=== PATIENT | female | born 1990 | race Caucasian/White ===

== ENCOUNTER → 2017-06-09 | Outpatient (CLI) | payer OTHER | END | disposition home or self-care (01) | LOC: C.LABSPEC 14:55 | PROVIDERS: ATTEND Physician Assistant | DX: N39.0 Urinary tract infection, site not specified (principal) ==

== ENCOUNTER → 2017-10-10 | Outpatient (CLI) | payer OTHER ==
[2017-10-10 16:31] LABS: BASO % 0.4 %; BASO ABS # 0.04 K/uL (0-0.2); EOS % 3.6 %; EOS ABS # 0.35 K/uL (0-0.5); HEMATOCRIT 36.6 % (37-47); HEMOGLOBIN 12.9 g/dL (12.0-16.0); IG# 0.02 K/uL (0.00-0.02); LYMPH ABS # 1.48 K/uL (1.2-3.4); MEAN CELL VOLUME 86.7 fL (80-100); MEAN CORPUSCULAR HEMOGLOBIN 30.6 pg (25-34); MEAN CORPUSCULAR HGB CONC 35.2 g/dl (32-36); MEAN PLATELET VOLUME 10.6 fL (7.4-10.4); MONO % 5.9 %; MONO ABS # 0.58 K/uL (0.11-0.59); NEUT % 74.9 %; NEUT ABS # 7.37 K/uL (1.4-6.5); PLATELET COUNT 223 K/uL (130-400); RED CELL DISTRIBUTION WIDTH CV 12.7 % (11.5-14.5); RED CELL DISTRIBUTION WIDTH SD 39.9 fL (36.4-46.3); WHITE BLOOD COUNT 9.84 K/uL (4.8-10.8)
== END | disposition home or self-care (01) ==
LOC: C.LAB1850 15:08
PROVIDERS: ATTEND Obstetrics & Gynecology
DX: Z34.01 Encounter for supervision of normal first pregnancy, first trimester (principal)

== ENCOUNTER → 2017-12-07 | Outpatient (CLI) | payer OTHER | END | disposition home or self-care (01) | LOC: C.LAB1850 12:48 | PROVIDERS: ATTEND Obstetrics & Gynecology | DX: O30.042 Twin pregnancy, dichorionic/diamniotic, second trimester (principal); Z3A.00 Weeks of gestation of pregnancy not specified ==

== ENCOUNTER 2018-04-05 11:44 | Outpatient (CLI) | payer OTHER ==
[~2018-04-05] VITALS: Ht 162.6 cm; Wt 96.2 kg
[2018-04-05 11:53] VITALS: Ht 162.6 cm; Wt 96.2 kg
--- NOTE | 2018-04-12 13:21 | EDITING REQUIRED CODING QUERY ---
DIAGNOSIS NEEDED To promote full compliance with coding requirements relating to patient care, physician participation is requested in all cases of heat and frost insulator helper uncertainty. Please assist us with the question(s) below: Coding Question: The patient received care in labor and delivery on 04/05/18 as noted within the record. Please document the diagnosis that is being addressed by the medication/treatment. Provider Response: DIAGNOSIS: Di di twins, 34 w WEEKS OF GESTATION: 34 Thank you for your assistance, Jess Sun - Equipment Records Supervisor
== END 2018-04-05 12:05 | disposition home or self-care (01) ==
LOC: C.LD 11:44 → C.OPB 11:44
PROVIDERS: ATTEND Obstetrics & Gynecology
DX: O30.043 Twin pregnancy, dichorionic/diamniotic, third trimester (principal); Z3A.34 34 weeks gestation of pregnancy

== ENCOUNTER → 2018-04-05 | Outpatient (CLI) | payer OTHER ==
[~2018-04-05] MED LIST: CALC500C70 PO; DIPH25CA5 PO; FAMO20TA11 PO; ONDA4TAB46 PO; PRENTAB26 PO
[2018-04-05 12:34] LABS: ALBUMIN 2.6 gm/dl (3.4-5.0); ALKALINE PHOSPHATASE 191 U/L (45-117); ALT/SGPT 20 U/L (12-78); AST/SGOT 14 U/L (15-37); BLOOD UREA NITROGEN 6 mg/dl (7-18); CALCIUM 8.5 mg/dl (8.5-10.1); CARBON DIOXIDE 21 mmol/L (21-32); CREATININE 0.78 mg/dl (0.60-1.20); GLUCOSE 87 mg/dl (70-99); POTASSIUM 3.5 mmol/L (3.5-5.1); SODIUM 137 mmol/L (136-145); TOTAL PROTEIN 6.7 gm/dl (6.4-8.2)
== END | disposition home or self-care (01) ==
LOC: C.LAB1850 11:00
PROVIDERS: ATTEND Obstetrics & Gynecology
DX: L29.9 Pruritus, unspecified (principal)

== ENCOUNTER → 2018-04-05 | Outpatient (CLI) | payer OTHER | END | disposition home or self-care (01) | LOC: C.LABSPEC 13:13 | PROVIDERS: ATTEND Obstetrics & Gynecology | DX: O30.043 Twin pregnancy, dichorionic/diamniotic, third trimester (principal); Z3A.00 Weeks of gestation of pregnancy not specified ==

== ENCOUNTER 2018-04-12 14:24 | Outpatient (CLI) | payer OTHER ==
--- NOTE | 2018-04-19 08:15 | EDITING REQUIRED CODING QUERY ---
DIAGNOSIS NEEDED To promote full compliance with coding requirements relating to patient care, physician participation is requested in all cases of supervisor trust accounts uncertainty. Please assist us with the question(s) below: Coding Question: The patient received care in labor and delivery on 04/12/18 as noted within the record. Please document the diagnosis that is being addressed by the medication/treatment. Provider Response: DIAGNOSIS: twins WEEKS OF GESTATION: ? 34 Thank you for your assistance, Jess Sun - Learning Strategist
== END 2018-04-12 15:05 | disposition home or self-care (01) ==
LOC: C.LD 14:24 → C.OPB 14:24
PROVIDERS: ATTEND Obstetrics & Gynecology
DX: O30.009 Twin pregnancy, unspecified number of placenta and unspecified number of amniotic sacs, unspecified trimester (principal); Z3A.00 Weeks of gestation of pregnancy not specified

== ENCOUNTER 2018-04-16 14:54 | Outpatient (CLI) | payer OTHER ==
--- NOTE | 2018-04-19 08:19 | EDITING REQUIRED CODING QUERY ---
DIAGNOSIS NEEDED To promote full compliance with coding requirements relating to patient care, physician participation is requested in all cases of hardware developer uncertainty. Please assist us with the question(s) below: Coding Question: The patient received care in labor and delivery on 04/16/18 as noted within the record. Please document the diagnosis that is being addressed by the medication/treatment. Provider Response: DIAGNOSIS: dichorionic/diamniotic twins WEEKS OF GESTATION: 35 + weeks Thank you for your assistance, Jess Sun - Last Repairer
== END 2018-04-16 15:50 | disposition home or self-care (01) ==
LOC: C.OPB 14:54 → C.LD 14:57 → C.OPB 15:50
PROVIDERS: ATTEND Obstetrics & Gynecology
DX: O30.043 Twin pregnancy, dichorionic/diamniotic, third trimester (principal); Z3A.35 35 weeks gestation of pregnancy

== ENCOUNTER 2018-04-19 14:29 | Outpatient (CLI) | payer OTHER | END 2018-04-19 15:00 | disposition home or self-care (01) | LOC: C.OPB 14:29 → C.LD 14:29 → C.OPB 15:00 | PROVIDERS: ATTEND Obstetrics & Gynecology | DX: O30.009 Twin pregnancy, unspecified number of placenta and unspecified number of amniotic sacs, unspecified trimester (principal); Z3A.00 Weeks of gestation of pregnancy not specified ==

== ENCOUNTER 2018-04-23 14:05 | Outpatient (CLI) | payer OTHER | END 2018-04-23 14:54 | disposition home or self-care (01) | LOC: C.OPB 14:05 → C.LD 14:06 → C.OPB 14:54 | PROVIDERS: ATTEND Obstetrics & Gynecology | DX: O30.099 Twin pregnancy, unable to determine number of placenta and number of amniotic sacs, unspecified trimester (principal); Z3A.00 Weeks of gestation of pregnancy not specified ==

== ENCOUNTER 2018-04-26 12:16 | Outpatient (CLI) | payer OTHER | END 2018-04-26 12:51 | disposition home or self-care (01) | LOC: C.OPB 12:16 → C.LD 12:16 → C.OPB 12:51 | PROVIDERS: ATTEND Obstetrics & Gynecology | DX: O30.009 Twin pregnancy, unspecified number of placenta and unspecified number of amniotic sacs, unspecified trimester (principal); Z3A.00 Weeks of gestation of pregnancy not specified ==

== ENCOUNTER 2018-04-30 12:13 | Outpatient (CLI) | payer OTHER | END 2018-04-30 12:50 | disposition home or self-care (01) | LOC: C.OPB 12:13 → C.LD 12:13 → C.OPB 12:50 | PROVIDERS: ATTEND Obstetrics & Gynecology | DX: O30.009 Twin pregnancy, unspecified number of placenta and unspecified number of amniotic sacs, unspecified trimester (principal); Z3A.00 Weeks of gestation of pregnancy not specified ==

== ENCOUNTER 2018-05-01 19:42 | Outpatient (CLI) | payer OTHER | END 2018-05-01 21:02 | disposition home or self-care (01) | LOC: C.OPB 19:42 → C.LD 19:43 → C.OPB 21:02 | PROVIDERS: ATTEND Obstetrics & Gynecology | DX: O30.043 Twin pregnancy, dichorionic/diamniotic, third trimester (principal); Z3A.38 38 weeks gestation of pregnancy ==

== ENCOUNTER 2018-05-02 07:28 | Inpatient (IN) | payer OTHER ==
[~2018-05-02] VITALS: Ht 162.6 cm; Wt 100.0 kg
[~2018-05-02 07:28] MED LIST changes: -DIPH25CA5 PO; -ONDA4TAB46 PO
[2018-05-02] MEDS ORDERED: LACTATED RINGER'S 1000ML 1,000 ML IV PRN (08:14)
[2018-05-02 08:43] LABS: HEMATOCRIT 33.1 % (37-47); HEMOGLOBIN 11.2 g/dL (12.0-16.0); MEAN CELL VOLUME 89.9 fL (80-100); MEAN CORPUSCULAR HEMOGLOBIN 30.4 pg (25-34); MEAN CORPUSCULAR HGB CONC 33.8 g/dl (32-36); MEAN PLATELET VOLUME 10.9 fL (7.4-10.4); PLATELET COUNT 184 K/uL (130-400); RED CELL DISTRIBUTION WIDTH CV 13.7 % (11.5-14.5); RED CELL DISTRIBUTION WIDTH SD 44.7 fL (36.4-46.3); WHITE BLOOD COUNT 7.17 K/uL (4.8-10.8)
[2018-05-02] MEDS ORDERED: MISOPROSTOL 25 MCG TAB ONE ×2 (08:44→12:41)
[2018-05-02] MEDS ORDERED: MISOPROSTOL 25 MCG TAB PV ONE (08:44)
[2018-05-02] MEDS ORDERED: PENICILLIN G POTASSIUM IV 6 MU in DEXTROSE 5% 250ML 250 ML IV ONE (09:00)
[2018-05-02 11:07] VITALS: Ht 162.6 cm; Wt 100.0 kg
[2018-05-02] MEDS: LACTATED RINGER'S 1000ML 1,000 ML IV SCH (16:03)
[2018-05-02] MEDS ORDERED: LACTATED RINGER'S 1000ML 500 ML IV PRN (18:06)
[2018-05-02] MEDS: OXYTOCIN 30 UNITS/500ML NSS IV PRN (18:27)
[2018-05-02] MEDS ORDERED: MISOPROSTOL 25 MCG TAB PV SCH (20:00)
[2018-05-02] MEDS: FAMOTIDINE 20 MG TAB PO SCH (20:02)
[2018-05-02] MEDS: PENICILLIN G POTASSIUM IV 3 MU in DEXTROSE 5% 100ML 100 ML IV PRN (22:20)
[2018-05-03] MEDS ORDERED: EpHEDrine SULFATE INJ 50 MG/ML AMP ONE (00:23)
[2018-05-03] MEDS ORDERED: BUPIVACAINE 0.25% 30 ML VIAL ONE (00:23)
[2018-05-03] MEDS ORDERED: FENTANYL 2MCG/ML ROPIV 1.25MG/ML 100ML BAG ONE (00:24)
[2018-05-03] MEDS ORDERED: FENTANYL CITRATE INJ 50 MCG/1 ML 2 ML VIAL ONE ×2 (00:24→16:05)
[2018-05-03] MEDS ORDERED: NALOXONE HCL INJ 1 MG in SODIUM CHLORIDE 0.9% 1000ML 1,000 ML IV PRN (02:08)
[2018-05-03] MEDS ORDERED: LACTATED RINGER'S 1000ML 500 ML IV PRN (02:08)
[2018-05-03] MEDS ORDERED: NALOXONE HCL INJ 0.4 MG/1 ML VIAL/CARP IV PRN (02:15)
[2018-05-03] MEDS ORDERED: DiphenhydrAMINE HCL 50 MG/ML VIAL IV PRN (02:15)
[2018-05-03] MEDS ORDERED: PROMETHAZINE HCL INJ 6.25 MG in SODIUM CHLORIDE 0.9% 50ML 50 ML IV PRN (02:15)
[2018-05-03] MEDS ORDERED: EpHEDrine SULFATE INJ 50 MG/ML AMP IV PRN (02:15)
[2018-05-03] MEDS ORDERED: NALBUPHINE HCL INJ 10 MG/ML 1ML AMP IV PRN (02:15)
[2018-05-03] MEDS ORDERED: ONDANSETRON INJ 2 MG/ML 2 ML VIAL IV PRN ×2 (02:15→17:00)
[2018-05-03] MEDS: PENICILLIN G POTASSIUM IV 3 MU in DEXTROSE 5% 100ML 100 ML IV PRN ×4 (02:28→13:51)
[2018-05-03] MEDS: OXYTOCIN 30 UNITS/500ML NSS IV PRN (02:36)
[2018-05-03] MEDS: FENTANYL 2MCG/ML ROPIV 1.25MG/ML 100ML BAG EPI PRN ×3 (06:59→10:52)
[2018-05-03] MEDS: LACTATED RINGER'S 1000ML 1,000 ML IV SCH (08:08)
[2018-05-03] MEDS: FAMOTIDINE 20 MG TAB PO SCH ×2 (08:31→20:00)
[2018-05-03] MEDS ORDERED: CITRIC ACID/SODIUM CITRATE 15 ML UDC ONE (08:58)
[2018-05-03] MEDS ORDERED: BENZOCAINE 20% AER SPR 82.5 GM CAN EXT PRN (16:30)
[2018-05-03] MEDS ORDERED: MEASLES, MUMPS & RUBELLA VIRUS VIAL SQ. ONE (16:30)
[2018-05-03] MEDS ORDERED: DIPHTHERIA/TETANUS/PERTUSSIS 0.5 ML SYR/VIAL IM. ONE (16:30)
[2018-05-03] MEDS ORDERED: OXYTOCIN 30 UNITS/500ML NSS IV PRN (16:30)
[2018-05-03] MEDS ORDERED: ACETAMINOPHEN 325 MG TAB PO PRN (16:30)
[2018-05-03] MEDS ORDERED: SUPERCREAM 0.870 % 15GM JAR EXT PRN (16:30)
[2018-05-03] MEDS ORDERED: ACETAMINOPHEN/CODEINE 300/30MG TAB PO PRN (16:30)
[2018-05-03] MEDS ORDERED: LANOLIN OINT EXT PRN (16:30)
[2018-05-03] MEDS ORDERED: HYDROCORTISONE ACETATE 25 MG SUPP PR PRN (16:30)
--- NOTE | 2018-05-03 16:32 | Anesthesiology Progress Note ---
Anesthesia Post Op Note Date & Time May 03, 2018 at 16:31 Notes Mental Status: alert / awake / arousable, participated in evaluation Pt Amnestic to Procedure: Yes Nausea / Vomiting: adequately controlled Pain: adequately controlled Airway Patency, RR, SpO2: stable & adequate BP & HR: stable & adequate Hydration State: stable & adequate Anesthetic Complications: no major complications apparent
[2018-05-03] MEDS ORDERED: ONDANSETRON INJ 2 MG/ML 2 ML VIAL ONE (16:58)
[2018-05-03] MEDS: IBUPROFEN 600 MG TAB PO PRN ×2 (17:15→23:27)
--- NOTE | 2018-05-03 18:09 | DELIVERY SUMMARY ---
DATE OF OPERATION: 05/03/2018 FINDINGS: Viable twin gestation delivered vaginally over a midline episiotomy. Baby A with Apgars of 8 and 8, weight of 6 pounds 15 ounces, arterial and venous cord gases pending. Baby B in a vertex presentation, nuchal cord x1, 6 pounds 12 ounces, Apgars 8 and 9, arterial and venous cord gasses pending. Midline episiotomy repaired with 4-0 and 2-0 Vicryl in a routine fashion. ESTIMATED BLOOD LOSS: 600 mL. LABOR NOTE: The patient is a 28-year-old 1, para 0, with an EDC of 05/12/2018 at 38+ weeks gestational age, who was admitted on 05/02/2018 for a term induction of di-di amniotic twins. The patient's twin gestation was diagnosed at her first visit. The patient has been followed for twin protocol. The patient has a bicuspid aortic valve, which was not of clinical significance during the , but per protocol, echocardiograms were performed, which were reassuring. The patient also had an episode of shingles during the , which was treated with oral acyclovir. The patient had serial ultrasounds for growth, which were reassuring, and she was admitted at 38+ weeks for term induction. On the day prior to admission, an attempt as an outpatient cervical Borges placement was unsuccessful. The patient's cervix was closed, 50%, and -2, and she received Cytotec 25 mcg vaginally. The patient began to have uterine irritability with the Cytotec, but there was no cervical change. Because of the frequency of contractions although mild to palpation, Pitocin was then initiated per induction protocol. At approximately 2300 hours on the day of admission, the patient was exhausted and tearful. An attempt was made at that time to place the cervical Borges again, which again was unsuccessful because of the patient's uncomfortableness. A decision was made to proceed with an epidural at this point to get the patient comfortable and have some rest and also to continue with Pitocin. After the epidural, the Borges bulb was placed and inflated. On the morning of admission, delivering physician assumed care for the patient. The Borges catheter was removed, and the patient was 3 cm dilated, 70% effaced, and -2 station. She had artificial rupture of membranes for clear fluid. An intrauterine pressure catheter was placed. After rupture of the membranes, there was a deceleration of baby B for approximately 2 to 3 minutes, which responded to maternal positional change, IV fluid bolus, and oxygen. A scalp electrode was applied. The Pitocin was discontinued with the deceleration. 40 minutes after the deceleration, the tracing was category 2, and Pitocin was reinitiated at 8 milliunits and increased per induction protocol. Over the next 6 to 7 hours, the patient progressed to full dilatation and began her second stage. She started her second stage in the labor room and had a deceleration down to the 70s. She had brought the vertex down to +2. Because of the deceleration, she was taken back to the delivery room, and pediatrics and anesthesia were summoned to the delivery room. The heart rate tracing stabilized at category 2, and the patient continued her second stage. She pushed for approximately 45 minutes delivering the viable female over a midline second-degree episiotomy. Cord gases and cord blood samples obtained. Physical examination and transabdominal ultrasound showed the baby B to be in a vertex presentation. The head was in the pelvis. Artificial rupture of membranes for clear fluid. The vertex came down into the pelvis, and over the next 3 contractions, the patient was able to deliver baby B. Baby B's cord was clamped and cut. Cord gases and cord blood samples obtained. Pediatrics was in attendance in monitoring of both babies. Both placentas were then delivered intact and sent for pathological evaluation. Inspection of the perineum showed a midline second-degree episiotomy. This was repaired with 4-0 and 2-0 Vicryl in a routine fashion. Estimated blood loss was 600 mL. Sponge and needle counts were correct. I attest to the content of the Intraoperative Record and any orders documented therein. Any exception s are noted below.
[2018-05-03 19:40] VITALS: BP 120/82; PULSE 74; TEMP 36.7; O2SAT 98
[2018-05-03] MEDS: DOCUSATE SODIUM 100 MG CAP PO SCH (19:58)
[2018-05-03] MEDS: ACETAMINOPHEN/CODEINE 300/30MG TAB PO PRN (19:59)
[2018-05-03 23:20] VITALS: BP 125/86; PULSE 70; TEMP 36.5; O2SAT 99
[2018-05-04] MEDS: ACETAMINOPHEN/CODEINE 300/30MG TAB PO PRN ×3 (02:05→20:18)
[2018-05-04 03:55] VITALS: BP 126/79; PULSE 66; TEMP 36.7; O2SAT 98
[2018-05-04] MEDS: IBUPROFEN 600 MG TAB PO PRN ×3 (04:07→17:02)
--- NOTE | 2018-05-04 07:03 | Progress Note ---
Subjective May 04, 2018. Subjective conversation w/ patient, physical exam Ambulation: ambulating normally Voiding: no voiding problems Passing Gas: Yes Diet Tolerance: Regular Diet Lochia: Large Feeding Type: Breast Feeding Pain: 2/10 and improving Review of Systems Constitutional: No fever, No chills, No sweats Respiratory: No cough, No sputum, No wheezing Cardiac: No chest pain, No palpitations Abdomen: No nausea, No vomiting, No diarrhea Female : No dysuria Objective Vital Signs Date Time Temp Pulse Resp B/P (MAP) Pulse Ox O2 Delivery O2 Flow Rate FiO2 05/04/18 03:55 36.7 66 16 126/79 (95) 98 Room Air 05/03/18 23:20 36.5 70 18 125/86 (99) 99 Room Air 05/03/18 19:40 36.7 74 18 120/82 (95) 98 Room Air 05/03/18 19:40 Room Air Physical Exam General Appearance: WELL-APPEARING, NO APPARENT DISTRESS Respiratory/Chest: chest non-tender, no respiratory distress Cardiovascular: regular rate, rhythm Abdomen: normal bowel sounds Fundus: Firm, Relation to Umbilicus (below) Extremities: non-tender, no calf tenderness Laboratory Results Last 24 Hours Test 05/04/18 06:51 Medications Current Inpatient Medications Medications (Trade) Dose Ordered Sig/[place] Route Start Time Stop Time Status Last Admin Dose Admin Lactated Ringer's 1,000 ml @ 125 mls/hr Q8H IV 05/02/18 08:14 05/04/18 08:13 05/03/18 08:08 125 MLS/HR Lactated Ringer's 1,000 ml @ 999 mls/hr Q1H1M PRN IV 05/02/18 08:14 06/01/18 08:13 Penicillin G Potassium 3 mu/ Dextrose 106 ml @ 100 mls/hr Q4H PRN IV 05/02/18 09:00 05/04/18 08:59 05/03/18 13:51 100 MLS/HR Lactated Ringer's 500 ml @ 999 mls/hr Q31M PRN IV 05/02/18 18:06 06/01/18 18:05 Famotidine (Pepcid Tab) 20 mg BID PO 05/02/18 20:00 06/01/18 19:59 05/03/18 08:31 20 MG Oxytocin (Pitocin IV) 30 units UD PRN IV 05/03/18 16:30 06/02/18 16:29 Benzocaine (Dermoplast Aero Spr) 1 appln PRN PRN EXT 05/03/18 16:30 06/02/18 16:29 05/03/18 17:19 1 APPLN Cocaine HCl (Supercream 0.870% Cr) BID PRN EXT 05/03/18 16:30 05/17/18 16:29 Hydrocortisone Acetate (Anusol Hc Supp) 25 mg BID PRN [place] 05/03/18 16:30 06/02/18 16:29 Lanolin (Lanolin Oint) PRN PRN EXT 05/03/18 16:30 06/02/18 16:29 Prenat Multivit/ Metrology Engineer/Iron/Folic Ac ( Vitamin Tab) 1 tab DAILY PO 05/04/18 08:00 06/03/18 07:59 Ibuprofen (Motrin Tab) 600 mg Q4H PRN PO 05/03/18 16:30 06/02/18 16:29 05/04/18 04:07 600 MG Acetaminophen (Tylenol Tab) 650 mg Q6H PRN PO 05/03/18 16:30 06/02/18 16:29 Acetaminophen/ Codeine Phosphate (Tylenol w/ Codeine #3 Tab) 1 tab Q4H PRN PO 05/03/18 16:30 06/02/18 16:29 05/04/18 02:05 1 TAB Acetaminophen/ Codeine Phosphate (Tylenol w/ Codeine #3 Tab) 2 tab Q4H PRN PO 05/03/18 16:30 06/02/18 16:29 Bisacodyl (Dulcolax Tab) 5 mg 20 PO 05/04/18 20:00 05/04/18 20:01 Docusate Sodium (coLACE CAP) 100 mg BID PO 05/03/18 20:00 06/02/18 19:59 05/03/18 19:58 100 MG Ferrous Sulfate (Feosol Tab) 325 mg DAILY PO 05/04/18 08:00 06/03/18 07:59 Ondansetron HCl (Zofran Inj) 4 mg Q4H PRN IV 05/03/18 17:00 06/02/18 16:59 05/03/18 17:00 4 MG Assessment and Plan Post- Day#: 1 Continue Routine Care: 28 yo delivered at 38+4 PPD1 s/p for twins -AFVSS, Pt doing well resting comfortably with baby in the room -no si/sx of anemia, will follow up Hgb from today, 11.2 on admission -Plan is to breast feed -Tolerating regular diet, no n/v -Continue to encourage ambulation -Routine care Resident Physician Supervision Note: I interviewed and examined the patient. Discussed with Dr. Coleman and agree with findings and plan as documented in the note. Any exceptions or clarifications are listed here: [None] Documented By: Noe Pedro Resident Tracking Resident Involvement: Resident Care Provided Care Provided: Adult Hospital Medicine
[2018-05-04 07:31] LABS: HEMATOCRIT 21.3 % (37-47); HEMOGLOBIN 7.2 g/dL (12.0-16.0)
[2018-05-04 08:25] VITALS: BP 115/76; PULSE 65; TEMP 36.6
[2018-05-04] MEDS: FERROUS SULFATE 325 MG TAB PO SCH ×3 (08:30→09:47)
[2018-05-04] MEDS: PRENATAL VITAMIN TAB PO SCH (08:30)
[2018-05-04] MEDS: DOCUSATE SODIUM 100 MG CAP PO SCH ×2 (08:30→20:12)
[2018-05-04] MEDS: FAMOTIDINE 20 MG TAB PO SCH ×3 (08:31→20:13)
[2018-05-04 12:50] VITALS: BP 134/83; PULSE 66; TEMP 36.6
[2018-05-04 16:30] VITALS: BP 135/87; PULSE 74; TEMP 36.8; O2SAT 98
[2018-05-04] MEDS ORDERED: BISACODYL 5 MG TABEC PO SCH (20:00)
[2018-05-04 20:20] VITALS: BP 125/84; PULSE 69; TEMP 36.6; O2SAT 100
[2018-05-04 23:00] VITALS: BP 129/80; PULSE 71; TEMP 37; O2SAT 100
--- NOTE | 2018-05-05 04:59 | Progress Note ---
Subjective May 05, 2018. Subjective conversation w/ patient Ambulation: ambulating normally Voiding: no voiding problems Diet Tolerance: Regular Diet Lochia: Moderate Feeding Type: Breast Feeding Objective Vital Signs Date Time Temp Pulse Resp B/P (MAP) Pulse Ox O2 Delivery O2 Flow Rate FiO2 05/04/18 23:00 37.0 71 20 129/80 (96) 100 Room Air 05/04/18 20:20 100 Room Air 05/04/18 20:20 36.6 69 20 125/84 (98) 100 Room Air 05/04/18 16:30 98 Room Air 05/04/18 16:30 36.8 74 18 135/87 (103) 98 Room Air 05/04/18 12:50 36.6 66 16 134/83 (100) Room Air 05/04/18 08:25 36.6 65 18 115/76 (89) Room Air 05/04/18 08:25 Room Air Physical Exam General Appearance: WELL-APPEARING, NO APPARENT DISTRESS Respiratory/Chest: no respiratory distress Abdomen: non tender, soft Fundus: Firm, Non-Tender Laboratory Results Last 24 Hours Test 05/04/18 06:51 05/05/18 04:44 Hemoglobin 7.2 g/dL Hematocrit 21.3 % Assessment and Plan Post- Day#: 2 Continue Routine Care: HGB 7.2 yesterday. Repeat pending today. Will transfuse PRN. Possible discharge later if HGB is stable and patient doing well. No calf tenderness.
[2018-05-05] MEDS ORDERED: FRRS300 PO (05:01)
--- NOTE | 2018-05-05 05:03 | Discharge Instructions ---
Discharge Instructions Date of Service May 05, 2018. Admission Reason for Admission: Induction For Twins Discharge Discharge Diagnosis / Problem: Vaginal delivery of twins Discharge Goals Goal(s): Routine recovery after delivery Activity Recommendations Activity Limitations: per Instructions/Follow-up section . Instructions / Follow-Up Instructions / Follow-Up ACTIVITY RECOMMENDATIONS: * Gradual return to full activity over the next 2-3 weeks. * No lifting - nothing heavier than baby over the next 2-3 weeks. * Do not engage in vigorous exercise, sexual activity or sports until cleared by your physician. * Do not drive or operate any motorized equipment until cleared by your physician. * You may shower/bathe daily. MEDICATIONS: For discomfort or pain, you may use Acetaminophen (Tylenol), Ibuprofen (Advil), or Naproxen (Aleve) following the package directions. For constipation you may use Colace following the package directions. BREAST CARE: If you are not breast feeding: * Wear a supportive bra 24 hours a day for one to two weeks. * Avoid stimulating your breasts and nipples as much as possible during the first few weeks after delivery. * When taking a shower, have the warm water hit your back, not breasts. * When your breasts feel full, apply ice packs. Usually three to four times a day helps ease the discomfort. * Take a mild pain medication (Tylenol / Motrin) when you are uncomfortable. If breast feeding: * Use breast milk to lubricate nipples. Lansinoh cream may be used for sore nipples. You do not need to remove cream prior to breast feeding. If using a different brand of cream, check the label for directions regarding removal of cream prior to nursing. * Wear a supportive bra. * If having problems with breasts or breast feeding, call a mgmt consultant or your health care provider. EPISIOTOMY CARE: After delivery, if you have an episiotomy (stitches), the following steps will ease discomfort and aid healing. * For the first 24 hours after delivery, place ice packs next to your episiotomy to help reduce swelling. * After the first 24 hour-period, sitz baths, either portable or in the tub, are suggested. A shower with a shower arm sprayed over the episiotomy may be comforting. * Dang care should be done after each voiding and bowel movement. Squirt warm water from a plastic bottle over the perineum (region of the body between the anus and urinary opening) and pat dry. * Use Dermoplast to ease discomfort. Shake container. Ventress directly over the episiotomy. Place a Tucks on a clean sanitary pad next to your episiotomy. SPECIAL CARE INSTRUCTIONS: When you are discharged from the hospital, it is important for you to follow the instructions listed below: * During the first week at home, you should be able to care for yourself and your baby. In addition, the usual light household activities are encouraged. * Limit your activities to the way you feel. Do not try to clean the house or move furniture. Be sensible. * If you actively engage in sports and have done so up until the time of your delivery, you may resume these activities as soon as you feel able. This may take up to one month or even longer. Use good judgment. * Continue to take your vitamins for at least six weeks after the of your baby. * Your diet need not be limited unless you were on a special diet before your delivery. Breast-feeding mothers need around 2500 calories per day and at least 64-80 ounces of fluid per day (8 to 10 glasses). * You should eat foods from the four major food groups. Crash diets or fad diets are to be avoided. Eating lean meats, fresh fruits and vegetables, low-fat dairy products, high fiber foods and a regular exercise program, will help you get back to your pre- weight without putting your health at risk. * Constipation is sometimes a problem after delivery. Take a mild laxative as needed. If breast feeding, Milk of Magnesia is acceptable to use. You may use a suppository or Fleets enema if no episiotomy. * A daily shower or tub bath is suggested. Be sure to thoroughly and gently dry the perineum. * A bloody vaginal discharge will usually continue until around four weeks post . A small amount of bleeding may continue for as long as six weeks. Vaginal discharge changes from the bright red bleeding after delivery to pink then brownish and finally yellowish-pink before becoming white and disappearing. * Bleeding may increase with activity. Your first period may come in 4-8 weeks. If you are breast feeding, your period may be delayed even longer. * [place] (sex) can begin whenever both you and your partner feel comfortable and do not have any form of genital infection. It is recommended that you wait at least six weeks for internal and external healing to occur. If you have questions, please talk to your health care practitioner. A condom should be used to prevent infection and . * Foreplay, gentle intercourse and lubrication is very important the first several times to prevent pain. A water-based lubricant such as K-Y jelly or Astroglide may be used. * If you have RH negative blood and your baby is RH positive, you will receive RHOGAM by injection prior to discharge. The nurse will give you a card to keep with you that has the date and place that you received RHOGAM after delivery. * During your care, you had a Rubella screen done to check for the presence of rubella antibodies in your blood. If your test was negative, you will receive a Rubella vaccine prior to discharge. This vaccine may cause a fever, soreness at the injection site and flu-like symptoms. If these symptoms persist, notify your health care practitioner. is not advised for one month after a Rubella vaccine. * Verbalizes understanding of car seat law as reviewed with patient nursing. * Car Seat hand-out given and reviewed with patient by nursing. * Shaken baby information reviewed with patient by nursing. Call you doctor if: * Heavy bleeding (saturating several pads an hour) or passing clots the size of your fist. * A fever >101 degrees F (38.3 degrees C) on two occasions four hours apart and /or chills. * Unusual pain in the pelvic or vaginal areas. * "Baby Blues" lasting longer than two weeks. If you have any questions or concerns, call your health care practitioner at . FOLLOW UP VISIT: * Please call the office at to schedule a 6 week examination. It is important you keep this appointment. It is important for you to make arrangements for either yearly or twice yearly check-ups thereafter. Current Hospital Diet Patient's current hospital diet: Regular OB Diet Discharge Diet Recommended Diet: Regular OB Diet Pending Studies Studies pending at discharge: no Medical Emergencies . Who to Call and When: Medical Emergencies: If at any time you feel your situation is an emergency, please call 911 immediately. . Non-Emergent Contact Non-Emergency issues call your: Junior Linux Administrator . . "Provider Documentation" section prepared by Pako Hebert. .
--- NOTE | 2018-05-05 06:58 | Progress Note ---
Subjective May 05, 2018. Subjective conversation w/ patient, physical exam Ambulation: ambulating normally Voiding: no voiding problems Passing Gas: Yes Diet Tolerance: Regular Diet Lochia: Moderate (improving) Feeding Type: Breast Feeding Pain: 2/10, improving Review of Systems Constitutional: No fever, No chills, No sweats Respiratory: No cough, No sputum, No wheezing Cardiac: No chest pain, No palpitations Abdomen: No pain, No nausea, No vomiting Female : No dysuria Objective Vital Signs Date Time Temp Pulse Resp B/P (MAP) Pulse Ox O2 Delivery O2 Flow Rate FiO2 05/04/18 23:00 37.0 71 20 129/80 (96) 100 Room Air 05/04/18 20:20 100 Room Air 05/04/18 20:20 36.6 69 20 125/84 (98) 100 Room Air 05/04/18 16:30 98 Room Air 05/04/18 16:30 36.8 74 18 135/87 (103) 98 Room Air 05/04/18 12:50 36.6 66 16 134/83 (100) Room Air 05/04/18 08:25 36.6 65 18 115/76 (89) Room Air 05/04/18 08:25 Room Air Physical Exam General Appearance: WELL-APPEARING, NO APPARENT DISTRESS Respiratory/Chest: chest non-tender, no respiratory distress Cardiovascular: regular rate, rhythm, no murmur Abdomen: normal bowel sounds Fundus: Firm, Relation to Umbilicus (below) Extremities: non-tender, no calf tenderness Laboratory Results Last 24 Hours Test 05/05/18 04:44 Medications Current Inpatient Medications Medications (Trade) Dose Ordered Sig/[facility] Route Start Time Stop Time Status Last Admin Dose Admin Lactated Ringer's 1,000 ml @ 999 mls/hr Q1H1M PRN IV 05/02/18 08:14 06/01/18 08:13 Lactated Ringer's 500 ml @ 999 mls/hr Q31M PRN IV 05/02/18 18:06 06/01/18 18:05 Famotidine (Pepcid Tab) 20 mg BID PO 05/02/18 20:00 06/01/18 19:59 05/03/18 08:31 20 MG Oxytocin (Pitocin IV) 30 units UD PRN IV 05/03/18 16:30 06/02/18 16:29 Benzocaine (Dermoplast Aero Spr) 1 appln PRN PRN EXT 05/03/18 16:30 06/02/18 16:29 05/03/18 17:19 1 APPLN Cocaine HCl (Supercream 0.870% Cr) BID PRN EXT 05/03/18 16:30 05/17/18 16:29 Hydrocortisone Acetate (Anusol Hc Supp) 25 mg BID PRN [place] 05/03/18 16:30 06/02/18 16:29 Lanolin (Lanolin Oint) PRN PRN EXT 05/03/18 16:30 06/02/18 16:29 Prenat Multivit/ [place]/Iron/Folic Ac ( Vitamin Tab) 1 tab DAILY PO 05/04/18 08:00 06/03/18 07:59 05/04/18 08:30 1 TAB Ibuprofen (Motrin Tab) 600 mg Q4H PRN PO 05/03/18 16:30 06/02/18 16:29 05/04/18 17:02 600 MG Acetaminophen (Tylenol Tab) 650 mg Q6H PRN PO 05/03/18 16:30 06/02/18 16:29 Acetaminophen/ Codeine Phosphate (Tylenol w/ Codeine #3 Tab) 1 tab Q4H PRN PO 05/03/18 16:30 06/02/18 16:29 05/04/18 20:18 1 TAB Acetaminophen/ Codeine Phosphate (Tylenol w/ Codeine #3 Tab) 2 tab Q4H PRN PO 05/03/18 16:30 06/02/18 16:29 Docusate Sodium (coLACE CAP) 100 mg BID PO 05/03/18 20:00 06/02/18 19:59 05/04/18 20:12 100 MG Ferrous Sulfate (Feosol Tab) 325 mg DAILY PO 05/04/18 08:00 06/03/18 07:59 05/04/18 09:47 325 MG Ondansetron HCl (Zofran Inj) 4 mg Q4H PRN IV 05/03/18 17:00 06/02/18 16:59 05/03/18 17:00 4 MG Assessment and Plan Post- Day#: 2 Continue Routine Care: 28 yo delivered at 38+4 PPD2 s/p for twins -AFVSS, Pt doing well resting comfortably with baby in the room -no si/sx of anemia, will follow up Hgb from today, 7.2 on ppd 1, 11.2 on admission -Plan is to breast feed -Tolerating regular diet, no n/v -Continue to encourage ambulation -Routine care -Provided Discharge Counseling regarding vaginal bleeding, fever, f/u 6 weeks, no heavy lifting for 2-3 weeks, breast feeding, taking pre-melissa vitamin, and nothing in the vagina for 6 weeks (tampons, douching, intercourse). Resident Tracking Resident Involvement: Resident Care Provided Care Provided: Adult Hospital Medicine
[2018-05-05] MEDS: FAMOTIDINE 20 MG TAB PO SCH ×2 (08:00→20:00)
[2018-05-05 08:04] VITALS: BP 127/83; PULSE 74; TEMP 36.9; O2SAT 97
[2018-05-05] MEDS: DOCUSATE SODIUM 100 MG CAP PO SCH ×2 (08:17→20:00)
[2018-05-05] MEDS: FERROUS SULFATE 325 MG TAB PO SCH (08:17)
[2018-05-05] MEDS: PRENATAL VITAMIN TAB PO SCH (08:17)
[2018-05-05] MEDS: IBUPROFEN 600 MG TAB PO PRN ×2 (08:18→16:43)
[2018-05-05 08:27] LABS: HEMATOCRIT 21.8 % (37-47); HEMOGLOBIN 7.2 g/dL (12.0-16.0); MEAN CORPUSCULAR HEMOGLOBIN 30.4 pg (25-34); MEAN PLATELET VOLUME 10.5 fL (7.4-10.4); PLATELET COUNT 153 K/uL (130-400); RED CELL DISTRIBUTION WIDTH CV 14.2 % (11.5-14.5); RED CELL DISTRIBUTION WIDTH SD 46.5 fL (36.4-46.3); WHITE BLOOD COUNT 9.31 K/uL (4.8-10.8)
[2018-05-05 16:30] VITALS: BP 133/84; PULSE 87; TEMP 37
[2018-05-05 19:40] VITALS: BP_DIAS 84; PULSE 87; TEMP 37
== END 2018-05-05 20:01 | disposition home or self-care (01) | DRG 775 ==
LOC: C.LD 07:54 → C.OBG 05-03 19:50
PROVIDERS: ADMIT Obstetrics & Gynecology; ATTEND Obstetrics & Gynecology
PROC: 0W8NXZZ Division of Female Perineum, External Approach (ICD-10-PCS; principal; 2018-05-02)
PROC: 10E0XZZ Delivery of Products of Conception, External Approach (ICD-10-PCS; principal; 2018-05-02)
PROC: 3E033VJ Introduction of Other Hormone into Peripheral Vein, Percutaneous Approach (ICD-10-PCS; principal; 2018-05-02)
DX: O30.003 Twin pregnancy, unspecified number of placenta and unspecified number of amniotic sacs, third trimester (principal); Z37.2 Twins, both liveborn; Z3A.38 38 weeks gestation of pregnancy